=== PATIENT | male | born 2000 | race Caucasian/White ===

== ENCOUNTER 2021-05-30 21:39 | Emergency (ER) | payer SELFPAY ==
[~2021-05-30] VITALS: Ht 195.6 cm; Wt 72.6 kg
--- NOTE | 2021-05-30 21:39 | NUR ---
PT BIB [facility], PRE-BOOK. TAKEN TO CHAIR
[2021-05-30 21:41] VITALS: BP 129/99
--- NOTE | 2021-05-30 22:03 | NUR ---
Dr. Soria examining patient.
[2021-05-30 22:27] VITALS: BP 129/99
--- NOTE | 2021-05-30 22:28 | NUR ---
PATIENT BIB [facility]. PATIENT EXAMINED BY DR. MENDOSA. PATIENT MEDICALLY CLEARED AND RELEASED IN CUSTODY IN STABLE CONDITION. ORIGINAL PRE-BOOK FORM GIVEN TO OFFICER CORTEZ.
== END 2021-05-30 22:28 ==
LOC: MED 21:39
DX: S00.12XA Contusion of left eyelid and periocular area, initial encounter (principal); S00.81XA Abrasion of other part of head, initial encounter; R07.89 Other chest pain; V89.2XXA Person injured in unspecified motor-vehicle accident, traffic, initial encounter; Y93.89 Activity, other specified; Y92.410 Unspecified street and highway as the place of occurrence of the external cause; Y99.8 Other external cause status
CPT/HCPCS: 99283